=== PATIENT | female | born 1975 | race Asian ===

== ENCOUNTER 2020-05-03 18:30 | Emergency (ER) | payer OTHER ==
[~2020-05-03] VITALS: Ht 165.1 cm; Wt 73.0 kg
[2020-05-03 20:40] VITALS: BP 121/71
== END 2020-05-03 20:40 | disposition home or self-care (01) ==
LOC: ED 18:30
DX: T18.0XXA Foreign body in mouth, initial encounter (principal); Z98.890 Other specified postprocedural states; W45.8XXA Other foreign body or object entering through skin, initial encounter; Y93.89 Activity, other specified; Y92.89 Other specified places as the place of occurrence of the external cause; Y99.8 Other external cause status